=== PATIENT | male | born 1970 | race Caucasian/White ===

== ENCOUNTER → 2017-11-11 | Outpatient (CLI) | payer OTHER ==
--- NOTE | 2017-11-11 16:23 | Diagnostic Imaging Report ---
PROCEDURE:ABDOMINAL ULTRASOUND COMPARISON:None. INDICATIONS:Hyperlipidemia,cholelithiasis, s/p pancreatitis FINDINGS: Liver: 14.4 cm Normal hepatic parenchymal echogenicity. No focal mass. Main portal vein: 1.0 cm, Hepatopetal flow. Gallbladder: Single, mobile, shadowing gallstones, which measures approximately 0.9 cm. No sludge. No wall thickening or pericholecystic fluid. Common Bile Duct: 0.3 cm. No echogenic filling defect. Sonographic Naqvi's sign: Negative Right kidney: 11.9 cm. No solid or cystic mass, echogenic calculi, or hydronephrosis. Normal parenchymal echogenicity. Left kidney: 12.8 cm. No solid or cystic mass, echogenic calculi, or hydronephrosis. Normal parenchymal echogenicity. Spleen: 8.0 cm. Pancreas: The visualized portions of the pancreas are normal. Inferior vena cava: Normal. Aorta: Unremarkable. Ascites: None. CONCLUSION: 1. cholelithiasis, without sonographic evidence of cholecystitis. 2. Visualized portions of the pancreas are unremarkable. Avery Downey M.D. Dictated by: Avery Downey M.D. on 11/11/2017 at 16:28 Electronically approved by: Avery Downey M.D. on 11/11/2017 at 16:28
== END ==
LOC: US 14:49
PROVIDERS: ATTEND Internal Medicine Gastroenterology
DX: K85.90 Acute pancreatitis without necrosis or infection, unspecified (principal); K80.20 Calculus of gallbladder without cholecystitis without obstruction; E78.4 Other hyperlipidemia; Z68.23 Body mass index [BMI] 23.0-23.9, adult
CPT/HCPCS: 76700

== ENCOUNTER → 2017-11-20 | Outpatient (CLI) | payer OTHER ==
[~2017-11-20] MED LIST: IOPAMIDOL 370 MG/ML 200 ML INFUS..BTL INJ ONE; SODIUM CHLORIDE 0.9% 50ML 50 ML ONE
[2017-11-20 18:19] LABS: BLOOD UREA NITROGEN 21 mg/dL (7-26); BUN/CREATININE RATIO 25 (6-25); CREATININE, SERUM 0.84 mg/dL (0.72-1.25); EST GLOMERULAR FILTRATION RATE > 60 ML/MIN (60-)
--- NOTE | 2017-11-20 19:17 | Diagnostic Imaging Report ---
EXAM: CT ABDOMEN W DATE: 11/20/2017 5:00 PM INDICATION: \S\LUQ ABD PAIN ;S/P PANCREATITIS ; COMPARISON: None Technique: CT abdomen performed after administration 100 mL Isovue-370 IV contrast. Images reviewed axial, coronal, and sagittal planes. FINDINGS: Atelectasis present in the lung bases. Calcified gallstone present. Gallbladder decompressed, otherwise limiting evaluation. Over, adrenals, kidneys, spleen, and pancreas unremarkable. There is a small hiatal hernia. No small bowel obstructive changes identified in partially visualized small bowel. No aortic aneurysm. No free fluid or free air. Pelvis not included. No acute osseous findings. IMPRESSION: Cholelithiasis. Lesion of the gallbladder is poorly evaluated with CT. Ultrasound could be obtained if clinically indicated. Signed by: Dr. Surya Contreras MD on 11/20/2017 7:13 PM
== END ==
LOC: CT 16:52
PROVIDERS: ATTEND Internal Medicine Gastroenterology
DX: R10.12 Left upper quadrant pain (principal); K85.90 Acute pancreatitis without necrosis or infection, unspecified; K80.20 Calculus of gallbladder without cholecystitis without obstruction; R63.4 Abnormal weight loss
CPT/HCPCS: 36415; 74160; 82565; 84520; Q9967

== ENCOUNTER 2018-02-08 19:24 | Emergency (ER) | payer OTHER ==
[~2018-02-08] VITALS: Ht 185.4 cm; Wt 77.1 kg
--- OUTSIDE RECORDS SUMMARY | 2018-02-08 19:26 | XMS REPORT ---
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 Allergies, Adverse Reactions, Alerts This patient has no known allergies or adverse reactions. Medications This patient has no known medications. Results Test Description Test Time Test Comments Text Results Atomic Results Result Comments CT ABDOMEN W 2017-11-20 19:11:00 [place] [address] Patient Name: JULIOCESAR WALTERS MR #: [id number] : 1970 Age/Sex: 47/M Req #: [id number] [facility] Physician: Ordered by: PROMISE HE MD Report #: [id number] Location: CT Room/Bed: Procedure: [id number] CT/CT ABDOMEN W Exam Date: 11/20/17 Exam Time: 1700 REPORT STATUS: Signed ADDENDUM #1 Indication: Left upper quadrant pain Signed by: Dr. Surya Contreras MD on 11/24/2017 9:11 AM ADDENDUM #2 Addendum: Appropriate dose lowering technique utilized. Signed by: Dr. Surya Contreras MD on 12/14/2017 11:42 AM ORIGINAL REPORT EXAM: CT ABDOMEN W DATE: 11/20/2017 5:00 PM INDICATION: COMPARISON: None Technique: CT abdomen performed after administration 100 mL Isovue-370 IV contrast. Images reviewed axial, coronal, and sagittal planes. FINDINGS: Atelectasis present in the lung bases. Calcified gallstone present. Gallbladder decompressed, otherwise limiting evaluation. Over, adrenals, kidneys, spleen, and pancreas unremarkable. There is a small hiatal hernia. No small bowel obstructive changes identified in partially visualized small bowel. No aortic aneurysm. No free fluid or free air. Pelvis not included. No acute osseous findings. IMPRESSION: Cholelithiasis. Lesion of the gallbladder is poorly evaluated with CT. Ultrasound could be obtained if clinically indicated. Signed by: Dr. Surya Contreras MD on 11/20/2017 7:13 PM Dictated By: SURYA CONTRERAS MD [id number] Transcribed By: BRENDA on 11/20/17 1913 COPY TO: PROMISE HE MD US ABDOMEN COMPLETE 2017-11-11 16:29:00 [place] [id number] Patient Name: JULIOCESAR WALTERS MR #: [id number] : 1970 Age/Sex: 47/M Req #: [id number] Adm Physician: Ordered by: PROMISE HE MD Report #: [id number] Location: Room/Bed: Procedure: [id number] US/US ABDOMEN COMPLETE Exam Date: Exam Time: REPORT STATUS: Signed PROCEDURE: ABDOMINAL ULTRASOUND COMPARISON: None. INDICATIONS: Hyperlipidemia,cholelithiasis, s/p pancreatitis FINDINGS: Liver: 14.4 cm Normal hepatic parenchymal echogenicity. No focal mass. Main portal vein: 1.0 cm, Hepatopetal flow. Gallbladder: Single, mobile, shadowing gallstones, which measures approximately 0.9 cm. No sludge. No wall thickening or pericholecystic fluid. Common Bile Duct: 0.3 cm. No echogenic filling defect. Sonographic Naqvi's sign: Negative Right kidney: 11.9 cm. No solid or cystic mass, echogenic calculi, or hydronephrosis. Normal parenchymal echogenicity. Left kidney: 12.8 cm. No solid or cystic mass, echogenic calculi, or hydronephrosis. Normal parenchymal echogenicity. Spleen: 8.0 cm. Pancreas: The visualized portions of the pancreas are normal. Inferior vena cava: Normal. Aorta: Unremarkable. Ascites: None. CONCLUSION: 1. cholelithiasis, without sonographic evidence of cholecystitis. 2. Visualized portions of the pancreas are unremarkable. Rick Downey M.D. Dictated by: Rick Downey M.D. on 11/11/2017 at 16:28 Electronically approved by: Rick Downey M.D. on 11/11/2017 at 16:28 Dictated By: RICK DOWNEY MD [id number] Transcribed By: JENA on 11/11/17 [id number] COPY TO: PROMISE HE MD
[2018-02-08] MEDS ORDERED: DIAZEPAM10 MG PO (19:49)
[2018-02-08] MEDS ORDERED: CREON DR 24,001 EACH PO (19:49)
[2018-02-08] MEDS ORDERED: NIACIN1000 MG PO (19:49)
[2018-02-08] MEDS ORDERED: PRAVASTATIN SOD80 MG PO (19:49)
[2018-02-08] MEDS ORDERED: CHOLESTYRAMINE P4 GM PO (19:49)
== END 2018-02-08 20:45 | disposition short-term general hospital (02) ==
LOC: ER 19:24
DX: R53.83 Other fatigue (principal)

== ENCOUNTER 2020-07-20 14:09 | Emergency (ER) | payer OTHER ==
[~2020-07-20] VITALS: Ht 185.4 cm; Wt 90.7 kg
[~2020-07-20 14:09] MED LIST changes: +CHOLESTYRAMINE P4 GM PO; +CREON DR 24,001 EACH PO; +DIAZEPAM10 MG PO; -IOPAMIDOL 370 MG/ML 200 ML INFUS..BTL INJ ONE; +NIACIN1000 MG PO; +PRAVASTATIN SOD80 MG PO; -SODIUM CHLORIDE 0.9% 50ML 50 ML ONE
[2020-07-20] MEDS ORDERED: PIPERACILLIN/TAZO 4.5 GM 100 ML IV STA (14:25)
[2020-07-20 14:49] LABS: BASOPHILS # (AUTO) 0.1 (0.0-0.1); BASOPHILS % 1.5 % (0.0-1.0); EOSINOPHILS # (AUTO) 0.5 (0.0-0.4); EOSINOPHILS % 6.4 % (0.0-6.0); HEMOGLOBIN 10.8 g/dL (14.0-18.0); LYMPHOCYTES % 28.1 % (18.0-39.1); MEAN CORPUSCULAR HEMOGLOBIN 33.9 pg (28-32); MEAN CORPUSCULAR HGB CONC 33.8 g/dL (31-35); MEAN CORPUSCULAR VOLUME 100.3 fL (81-99); MONOCYTES # (AUTO) 0.9 (0.2-0.8); MONOCYTES % 11.9 % (4.4-11.3); NEUTROPHILS # (AUTO) 3.7 (2.1-6.9); PLATELET COUNT 113 x10e3/uL (140-360); RED BLOOD COUNT 3.19 x10e6/uL (4.3-5.7); RED CELL DISTRIBUTION WIDTH 13.4 % (11.7-14.4)
[2020-07-20 15:11] LABS: ALANINE AMINOTRANSFERASE 38 IU/L (0-55); ALBUMIN 3.4 g/dL (3.5-5.0); ALBUMIN/GLOBULIN RATIO 0.7 (0.8-2.0); ALKALINE PHOSPHATASE 111 IU/L (40-150); ANION GAP 12.8 mmol/L (8-16); BLOOD UREA NITROGEN 8 mg/dL (7-26); BUN/CREATININE RATIO 11 (6-25); CALCIUM 8.3 mg/dL (8.4-10.2); CARBON DIOXIDE 26 mmol/L (22-29); CHLORIDE 105 mmol/L (98-107); CREATINE KINASE 313 IU/L (30-200); CREATININE, SERUM 0.71 mg/dL (0.72-1.25); EST GLOMERULAR FILTRATION RATE > 60 ML/MIN (60-); GLUCOSE 96 mg/dL (74-118); POTASSIUM 3.8 mmol/L (3.5-5.1); SODIUM 140 mmol/L (136-145)
[2020-07-20] MEDS ORDERED: BACTRIM DS TAB1 EACH PO (16:25)
[2020-07-20] MEDS ORDERED: CEPHALEXIN500 MG PO (16:25)
[2020-07-20] MEDS ORDERED: LAMISIL AT12 G1 TOP (16:25)
== END 2020-07-20 16:43 | disposition home or self-care (01) ==
LOC: ER 14:17
DX: L30.9 Dermatitis, unspecified (principal); D64.9 Anemia, unspecified; K86.9 Disease of pancreas, unspecified
CPT/HCPCS: 36415; 71045; 80053; 82550; 82553; 83880; 84484; 85025; 93005; 99283; J2543